=== PATIENT | female | born 1935 | race Caucasian/White ===

== ENCOUNTER 2020-05-16 13:48 | Observation (INO) ==
[2020-05-16] MEDS ORDERED: Clindamycin 900 MG/50 ML 900 MG/50 ML IV.SOLN IVPB ONE (14:18)
[2020-05-16] MEDS ORDERED: Ringers Solution, Lactated 1,000 ML IVC SCH (14:30)
[2020-05-16] MEDS ORDERED: *HR* HYDROmorphone PF 0.5 MG/0.5 ML SYRINGE IVP PRN (14:36)
[2020-05-16] MEDS ORDERED: Ondansetron 4 MG/2 ML VIAL IVP ONE (14:36)
[2020-05-16] MEDS ORDERED: *HR* Promethazine 25 MG/ML VIAL IVP PRN (14:36)
[2020-05-16] MEDS ORDERED: *HR* OxyCODONE Immed Rel 5 MG TABLET PO PRN ×2 (14:36→19:33)
[2020-05-16] MEDS ORDERED: *HR* Propofol 200 MG/20 ML VIAL IVP ONE (15:21)
[2020-05-16] MEDS ORDERED: Lidocaine -MPF 2% 2 ML VIAL ONE (15:22)
[2020-05-16] MEDS ORDERED: Ropivacaine/PF 0.5% 30 ML VIAL ONE (15:25)
[2020-05-16] MEDS ORDERED: Acetaminophen IV 1,000 MG/100 ML INFUS..BTL ONE (15:25)
[2020-05-16] MEDS ORDERED: Ethanol\\Acetic Acid\\Na Ace\\Ben 1,000 ML IRRIG.SOLN IR ONE (15:44)
[2020-05-16] MEDS ORDERED: Dexamethasone 4 MG/ML VIAL ONE (16:53)
[2020-05-16] MEDS ORDERED: Ondansetron 4 MG/2 ML VIAL ONE (16:53)
[2020-05-16] MEDS ORDERED: EPHEDrine 50 MG/ML VIAL ONE (17:03)
[2020-05-16 18:33] LABS: Hematocrit 34.1 % (35.3-44.9)
[2020-05-16] MEDS ORDERED: Ondansetron 4 MG/2 ML VIAL IVP PRN (19:33)
[2020-05-16] MEDS ORDERED: D5% in Water 1,000 ML IVC PRN (19:33)
[2020-05-16] MEDS ORDERED: Naloxone 0.4 MG/ML INJ IVP PRN (19:33)
[2020-05-16] MEDS ORDERED: *HR* Dextrose 50 % in Water (Vial) 50 ML VIAL IVP PRN (19:33)
[2020-05-16] MEDS ORDERED: *HR* OxyCODONE/APAP 5/325 TABLET PO PRN (19:33)
[2020-05-16] MEDS ORDERED: Dextrose Gel 15 GM/37.5 ML TUBE PO PRN ×2 (19:33)
[2020-05-16] MEDS ORDERED: Sennosides 8.6 MG TABLET PO PRN (19:33)
[2020-05-16] MEDS ORDERED: MOM Conc 10 ML UD.LIQ PO PRN (19:33)
[2020-05-16] MEDS: Insulin LISPRO 300 UNITS/3 ML VIAL SQ SCH ×2 (21:30→21:31)
[2020-05-16] MEDS: Gabapentin 400 MG CAPSULE PO SCH (21:36)
[2020-05-17] MEDS: Clindamycin 900 MG/50 ML 900 MG/50 ML IV.SOLN IVPB SCH ×2 (00:08→06:11)
[2020-05-17 03:05] LABS: Hematocrit 32.7 % (35.3-44.9); Hemoglobin 10.9 g/dL (11.5-15.4)
[2020-05-17 03:15] LABS: Potassium 3.9 mEq/L (3.5-5.1)
[2020-05-17] MEDS: Insulin LISPRO 300 UNITS/3 ML VIAL SQ SCH ×4 (08:53→20:57)
[2020-05-17] MEDS: Ringers Solution, Lactated 1,000 ML IVC SCH ×2 (09:29→17:16)
[2020-05-17] MEDS: Gabapentin 400 MG CAPSULE PO SCH ×2 (09:48→19:22)
[2020-05-17] MEDS: amLODIPine 5 MG TABLET PO SCH (09:49)
[2020-05-17] MEDS: Metoprolol XL (24 HR) Succ 50 MG TAB.ER.24H PO SCH (09:49)
[2020-05-17] MEDS: 0.9 % Sodium Chloride 1,000 ML IVC SCH (13:18)
[2020-05-18 06:30] LABS: Hematocrit 30.3 % (35.3-44.9); Hemoglobin 9.9 g/dL (11.5-15.4)
[2020-05-18 06:53] LABS: Potassium 3.8 mEq/L (3.5-5.1)
[2020-05-18] MEDS: Insulin LISPRO 300 UNITS/3 ML VIAL SQ SCH ×2 (08:19→11:31)
[2020-05-18] MEDS: Gabapentin 400 MG CAPSULE PO SCH ×2 (10:32→21:32)
[2020-05-18] MEDS: Metoprolol XL (24 HR) Succ 50 MG TAB.ER.24H PO SCH (10:33)
[2020-05-18] MEDS: amLODIPine 5 MG TABLET PO SCH (10:33)
[2020-05-18] MEDS: 0.9 % Sodium Chloride 1,000 ML IVC SCH (11:30)
[2020-05-18 20:59] VITALS: BP 152/63
== END 2020-05-18 22:07 | disposition other institution (70) ==
LOC: 3NENU 13:48 → SAMDAY 13:48
PROVIDERS: ADMIT Orthopaedic Surgery; ATTEND Orthopaedic Surgery